=== PATIENT | female | born 1990 | race Caucasian/White ===

== ENCOUNTER 2018-04-26 23:53 | Emergency (ER) | payer SELFPAY ==
--- NOTE | 2018-04-28 10:48 | ER ---
DATE SEEN: 04/26/2018 TIME SEEN: The patient was seen at 0012 hours. HISTORY OF PRESENT ILLNESS: This is a 27-year-old woman, who had a laparoscopic cholecystectomy a month ago at [facility]. She has felt to have has mild inflammation of her right upper quadrant laparoscopic trocar incision site. There is minimal discomfort, minimal swelling of this. She has not squeezed it. She denies fevers or chills. She denies difficulty eating or constipation, blood in the stool, black tarry stool, or change of bowels. The patient is an otherwise obese woman, who is 280+ pounds. ALLERGIES: None. MEDICATIONS: None. REVIEW OF SYSTEMS: Otherwise negative. PHYSICAL EXAMINATION: VITAL SIGNS: Blood pressure 133/84, heart rate 79, respirations 15, oxygen saturation 100%, temperature 36.9 degrees centigrade. GENERAL: A very pleasant woman in no acute distress, markedly overweight (morbidly obese). HEART: S1, S2. No murmurs. LUNGS: Clear to auscultation. ENT: Pharynx without abnormality. ABDOMEN: Soft, nontender. No guarding. No abdominal discomfort. SKIN: Right midclavicular line inferior to and mid distance between the right rib costal margin and the umbilicus is a trocar incision site that has minimal erythema. Nonindurated. No drainage is noted. ASSESSMENT: Superficial cellulitis of the dermis. PLAN: Use warm moist packs four times a day. I chose not to treat with antibiotics because of the benign appearance of the wound. Follow up with doctor in 24 to 72 hours if markedly worse, otherwise in 7 days. DIAGNOSES: 1. [id number] trocar incision site inflammation. 2. Superficial cellulitis status post laparoscopic cholecystectomy. 3. Morbid obesity. /[id number] JAQUAN/REY WEAVER
== END 2018-04-27 00:41 | disposition home or self-care (01) ==
LOC: FB.ED 23:53
DX: L03.311 Cellulitis of abdominal wall (principal); Z90.49 Acquired absence of other specified parts of digestive tract
CPT/HCPCS: 99282

== ENCOUNTER 2018-08-10 15:27 | Emergency (ER) | payer MEDICAID ==
[2018-08-10] MEDS ORDERED: HYDROmorphone 2 MG/ML SDV IM ONE (16:31)
[2018-08-10] MEDS ORDERED: Ondansetron 8 MG Tab.DIS PO ONE (16:32)
--- NOTE | 2018-08-10 16:45 | EDM.PDOC ---
ED HPI GENERAL MEDICAL PROBLEM - General Chief Complaint: Lower Extremity Injury/Pain Stated Complaint: RT HAMSTRING PAIN Time Seen by Provider: 08/10/18 16:00 Source of Information: Reports: Patient History Limitations: Reports: No Limitations - History of Present Illness INITIAL COMMENTS - FREE TEXT/NARRATIVE: This pleasant 27-year-old single 2 para 2 woman notes 2-1/2 days onset of "hamstring pain" right leg that does not radiate below the popliteal fossa. He seen a physical therapist in the past and they described this pain as "hamstring." She notes numbness in the toes of her right foot extend to the forefoot approximately 3-4 cm from the tips of toes. She had previous MRI of the pelvis demonstrated L5-S1 herniated disc. 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 - Related Data Allergies Allergy/AdvReac Type Severity Reaction Status Date / Time No Known Allergies Allergy Verified 08/10/18 15:42 Home Meds: Home Meds Methocarbamol [Robaxin] 1 tab PO BID 08/10/18 [History] oxyCODONE HCl/Acetaminophen [Percocet 5-325 mg Tablet] 1 each PO Q6HR PRN #10 tablet 08/10/18 [Rx] Past Medical History Musculoskeletal History: Reports: Back Pain, Chronic - Past Surgical History GI Surgical History: Reports: Cholecystectomy Musculoskeletal Surgical History: Reports: None Social & Family History - Family History Family Medical History: Noncontributory - Tobacco Use Smoking Status *Q: Current Every Day Smoker Years of Tobacco use: 12 Packs/Tins Daily: 1 Used Tobacco, but Quit: No Second Hand Smoke Exposure: Yes - Caffeine Use Caffeine Use: Reports: Soda - Recreational Drug Use Recreational Drug Use: No Review of Systems - Review of Systems Review Of Systems: See Below Constitutional: Reports: No Symptoms Eyes: Reports: No Symptoms Ears: Reports: No Symptoms Nose: Reports: No Symptoms Mouth/Throat: Reports: No Symptoms Respiratory: Reports: No Symptoms Cardiovascular: Reports: No Symptoms, Other (370 lbs) GI/Abdominal: Reports: No Symptoms Genitourinary: Reports: No Symptoms Musculoskeletal: Reports: Leg Pain Skin: Reports: No Symptoms Neurological: Reports: Other ("Numbness right toes.") Psychiatric: Reports: No Symptoms ED EXAM, GENERAL - Physical Exam Exam: See Below Free Text/Narrative:: Very pleasant 370 pound woman who has moderate right hamstring pain and is sitting on the gurney with her legs in extension on the gurney and has pain in her right posterior legs "the hamstrings". Exam Limited By: No Limitations General Appearance: Alert, WD/WN, Mild Distress Eye Exam: Bilateral Eye: Normal Inspection Ears: Normal External Exam, Normal Canal, Hearing Grossly Normal, Normal TMs Ear Exam: Bilateral Ear: Auricle Normal Nose: Normal Inspection, Normal Mucosa, No Blood Throat/Mouth: Normal Inspection, Normal Lips, Normal Teeth, Normal Gums, Normal Oropharynx, Normal Voice Head: Atraumatic, Normocephalic Neck: Normal Inspection, Supple Respiratory/Chest: No Respiratory Distress, Lungs Clear, Normal Breath Sounds, No Accessory Muscle Use, Chest Non-Tender Cardiovascular: Normal Peripheral Pulses, Regular Rate, Rhythm, No Edema, No Gallop, No JVD, No Murmur, No Rub Peripheral Pulses: 1+: Brachial (R), Radial (L) GI/Abdominal: Normal Bowel Sounds, Soft, Non-Tender, No Organomegaly, No Distention, No Abnormal Bruit, No Mass, Other (. Large abdominal circumference from her recently) (Female) Exam: Deferred Rectal (Female) Exam: Deferred Back Exam: Normal Inspection Neurological: Alert, Oriented, CN II-XII Intact, Normal Cognition, Normal Gait, Other (Absent knee jerk and ankle jerk reflexes no hypoesthesia lower extremities) Psychiatric: Anxious, Other (She is very pleasant) Skin Exam: Warm, Dry, Intact, Normal Color Lymphatic: No Adenopathy Course - Vital Signs Last Recorded V/S: Last Vital Signs Temp 36.3 C 08/10/18 16:58 Pulse 75 08/10/18 16:58 Resp 18 08/10/18 16:58 BP 125/61 08/10/18 16:58 Pulse Ox 97 08/10/18 16:58 - Orders/Labs/Meds Meds: Medications Discontinued Medications Generic Name Dose Route Start Last Admin Trade Name Freq PRN Reason Stop Dose Admin Hydromorphone HCl 2 mg 08/10/18 16:31 08/10/18 16:45 Dilaudid IM 08/10/18 16:32 2 mg ONETIME ONE Administration Ondansetron HCl 8 mg 08/10/18 16:32 08/10/18 16:45 Zofran Odt PO 08/10/18 16:33 8 mg ONETIME ONE Administration Departure - Departure Time of Disposition: 01:30 (Patient stands 9 hours at the epigastric region. She is sleepy obese and has a lot of stresses or lumbosacral structures. At present no clear suggestion of herniated lumbar sacral disc. But she has a ligament strain of muscle strain lower back. The numbness of the distal toes extending from medial L4, mid forefoot L5, and bilateral foot S1 dermatome involvement of the toes.) Disposition: Home, Self-Care 01 Condition: Good Clinical Impression: Low back pain Qualifiers: Chronicity: chronic Back pain laterality: right Sciatica presence: with sciatica Sciatica laterality: sciatica of right side Qualified Code(s): M54.41 - Lumbago with sciatica, right side; G89.29 - Other chronic pain - Discharge Information *PRESCRIPTION DRUG MONITORING PROGRAM REVIEWED*: Not Applicable *COPY OF PRESCRIPTION DRUG MONITORING REPORT IN PATIENT ABIGAIL: Not Applicable ( Patient following up with her doctor this week and still wants to go back to work consequently has been advised not use any narcotic but she has Tylenol and ibuprofen that she can use while working.) Prescriptions: oxyCODONE HCl/Acetaminophen [Percocet 5-325 mg Tablet] 1 each PO Q6HR PRN #10 tablet PRN Reason: Pain Referrals: Marquis Del Valle MD [Primary Care Provider] - Forms: ED Department Discharge Additional Instructions: Follow-up with her doctor regarding your back pain. You could have increased herniation of the already herniated disc at L5-S1 . Your weight of courses is a factor in the potential progression of disc herniation. The pain will required further medical or other intervention. I'm reluctant to use narcotics as we have potential for future opioid dependency. He'll be given a prescription for 10 Percocet. Altered doctor this next week. And temperature work activity to 5- 10 pounds lifting.
== END 2018-08-10 17:55 | disposition home or self-care (01) ==
LOC: FB.ED 15:27
DX: M54.41 Lumbago with sciatica, right side (principal); F17.210 Nicotine dependence, cigarettes, uncomplicated
CPT/HCPCS: 96372; 99283; A9270; J1170